=== PATIENT | female | born 1975 | race Caucasian/White ===

== ENCOUNTER 2021-02-21 20:31 | Emergency (ER) | payer SELFPAY ==
[~2021-02-21] VITALS: Ht 160 cm; Wt 103.0 kg
[2021-02-21 21:05] VITALS: BP 188/83
[2021-02-21] MEDS ORDERED: TETANUS, DIPHTHERIA, PERTUSSIS VAC/PF 0.5ML (>7YR OLD) IM ONE (21:45)
[2021-02-21] MEDS ORDERED: TRANEXAMIC ACID 1,000 MG/10 ML TP ONE (21:45)
[2021-02-21] MEDS ORDERED: LIDOCAINE HCL/EPINEPHRINE 1%-EPI 1:100,000 20 ML VIAL INFIL ONE (21:45)
[2021-02-21] MEDS ORDERED: BACITRACIN ZINC OINT UDPKT TOP ONE (21:45)
[2021-02-21] MEDS ORDERED: LIDOCAINE HCL/PF 1% 10 MG/ML 5ML VIAL IJ ONE (21:45)
[2021-02-21] MEDS ORDERED: CEPH500T MT (23:23)
== END 2021-02-21 23:42 | disposition home or self-care (01) ==
LOC: ER 20:48
DX: S51.811A Laceration without foreign body of right forearm, initial encounter (principal); W25.XXXA Contact with sharp glass, initial encounter; Y93.9 Activity, unspecified; Y92.9 Unspecified place or not applicable; R03.0 Elevated blood-pressure reading, without diagnosis of hypertension
CPT/HCPCS: 12001; 90715; 99283; J3490; Z7610